=== PATIENT | male | born 2000 | race Two or more races ===

== ENCOUNTER 2022-08-30 18:05 | Emergency (ER) | payer OTHER ==
[~2022-08-30] VITALS: Ht 167.6 cm; Wt 87.3 kg
[2022-08-30 18:06] VITALS: BP 133/78
== END 2022-08-30 22:15 | disposition home or self-care (01) ==
LOC: M ED 18:05
DX: S90.31XA Contusion of right foot, initial encounter (principal); W22.8XXA Striking against or struck by other objects, initial encounter; Y92.59 Other trade areas as the place of occurrence of the external cause; Z88.8 Allergy status to other drugs, medicaments and biological substances; Z98.890 Other specified postprocedural states